=== PATIENT | male | born 1960 | race Two or more races ===

== ENCOUNTER 2019-04-16 22:27 | Emergency (ER) | payer OTHER ==
[~2019-04-16] VITALS: Ht 172.7 cm; Wt 95.3 kg
--- NOTE | 2019-04-16 22:40 | NUR ---
FIRST CONTACT WITH PT. PT PRESENTS D/T CHRONIC LOWER BACK PAIN OUT OF PAIN MEDICATION PT WANTS TO GET PAIN MED EVEN JUST TODAY 209/108 BP AT TRIAGE. PT'S AOX4. RESPS EVEN AND UNLABORED. BP/SPO2 MONITORS IN PLACE. CALL LIGHT WITHIN REACH.
[2019-04-16 22:45] VITALS: BP 221/137
[2019-04-16] MEDS ORDERED: HYDROcodone/APAP 10/325 MG TABLET ONE (22:47)
--- NOTE | 2019-04-16 22:49 | NUR ---
PT MEDICATED PER EMAR FOR PAIN. PT TOLERATED WELL.
[2019-04-16] MEDS ORDERED: HYDROcodone/APAP 10/325 MG TABLET PO ONE (23:00)
== END 2019-04-17 00:08 | disposition home or self-care (01) ==
LOC: ED 23:59
DX: M54.42 Lumbago with sciatica, left side (principal); I10 Essential (primary) hypertension
CPT/HCPCS: 99283